=== PATIENT | male | born 1980 | race Caucasian/White ===

== ENCOUNTER 2023-04-01 07:50 | Outpatient (CLI) | payer BC, SELFPAY | END 2023-04-01 07:51 | disposition home or self-care (01) | LOC: NFLDREF 12:31 | PROVIDERS: PCP Family Medicine; Referring Provider Family Medicine; Visit Provider Family Medicine | DX: I10 Essential (primary) hypertension (principal) | CPT/HCPCS: 80048 ==

== ENCOUNTER 2024-09-20 08:02 | Outpatient (CLI) | payer BC, SELFPAY | END 2024-09-20 08:03 | disposition home or self-care (01) | LOC: NFLDREF 09-21 08:34 | PROVIDERS: PCP Family Medicine; Referring Provider Family Medicine; Visit Provider Family Medicine | DX: R68.82 Decreased libido (principal); E78.5 Hyperlipidemia, unspecified; I10 Essential (primary) hypertension | CPT/HCPCS: 80053; 80061; 84403 ==

== ENCOUNTER 2024-10-13 10:18 | Outpatient (CLI) | payer BC, SELFPAY ==
--- NOTE | 2024-10-13 11:36 | P.ANES_ITS ---
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
--- NOTE | 2024-10-13 11:36 | W.ANESCHARGE ---
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
--- NOTE | 2024-10-13 12:05 | P.ANES_ITS ---
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
--- NOTE | 2024-10-13 12:05 | W.ANESCHARGE ---
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
== END 2024-10-13 10:19 | disposition home or self-care (01) ==
LOC: OP CLINIC 10:18
PROVIDERS: PCP Family Medicine; Visit Provider Surgery
DX: Z12.11 Encounter for screening for malignant neoplasm of colon (principal); D12.3 Benign neoplasm of transverse colon; D12.7 Benign neoplasm of rectosigmoid junction
CPT/HCPCS: 00811; 45385; J2704